=== PATIENT | female | born 1980 | race Two or more races ===

== ENCOUNTER → 2020-04-13 | Outpatient (CLI) | payer MEDICAID ==
[~2020-04-13] MED LIST: HYDR-4135 PO; LABE300T3 PO
== END | disposition home or self-care (01) ==
LOC: LAB 14:20
PROVIDERS: ATTEND Obstetrics & Gynecology
DX: Z01.812 Encounter for preprocedural laboratory examination (principal); Z20.828 Contact with and (suspected) exposure to other viral communicable diseases
CPT/HCPCS: C9803; U0003

== ENCOUNTER 2020-04-15 08:31 | Inpatient (IN) | payer MEDICAID ==
[~2020-04-15] VITALS: Ht 167.6 cm; Wt 127.0 kg
[2020-04-15] MEDS ORDERED: CITRIC ACID/SODIUM CITRATE SOLN 30ML UDC PO NR (09:30)
[2020-04-15] MEDS: LACTATED RINGERS 1,000 ML IV SCH ×2 (09:33→10:10)
[2020-04-15] MEDS ORDERED: GLYCOPYRROLATE 0.2 MG/ML 2ML VIAL ONE (09:44)
[2020-04-15] MEDS ORDERED: OXYTOCIN 10 UNITS/ML 1ML ONE (09:44)
[2020-04-15] MEDS ORDERED: FENTANYL CITRATE/PF 50MCG/ML 2ML VIAL ONE (09:44)
[2020-04-15] MEDS ORDERED: EPHEDRINE SULFATE 50MG/ML VIAL ONE (09:44)
[2020-04-15] MEDS ORDERED: ONDANSETRON HCL 4MG/2ML INJ ONE (09:44)
[2020-04-15] MEDS ORDERED: MORPHINE SULFATE/PF 1MG/ML 10ML AMP ONE (09:44)
[2020-04-15] MEDS ORDERED: CEFAZOLIN SODIUM 1000MG/VIAL ONE ×2 (09:44→10:42)
[2020-04-15] MEDS ORDERED: LABE300T3 PO (09:51)
[2020-04-15] MEDS ORDERED: HYDR-4135 PO (09:52)
[2020-04-15 09:58] LABS: BASOPHILS % 0.6 % (0.0-2.0); EOSINOPHILS % 2.4 % (0.0-5.0); HEMATOCRIT. 34.5 % (36.0-48.0); HEMOGLOBIN. 11.5 g/dL (12.0-16.0); LYMPHOCYTES % 13.6 % (20.0-50.0); MEAN CORPUSCULAR HEMOGLOBIN 25.5 pg (28.0-32.0); MEAN CORPUSCULAR VOLUME 76.7 fL (81.0-99.0); MEAN PLATELET VOLUME 9.1 fl (7.4-10.4); MONOCYTES % 8.2 % (2.0-8.0); NEUTROPHILS % 75.2 % (40.0-76.0); PLATELET 204 x1000/uL (130-400); RED BLOOD CELL COUNT 4.49 mill/uL (4.2-5.4); RED CELL DISTRIBUTION WIDTH 17.7 % (11.6-14.6)
[2020-04-15 10:02] LABS: CLARITY URINE CLEAR (CLEAR); COLOR URINE YELLOW (YELLOW); KETONES URINE NEGATIVE (NEGATIVE); LEUKOCYTE ESTERASE URINE NEGATIVE (NEGATIVE); NITRITE URINE NEGATIVE (NEGATIVE); OCCULT BLOOD URINE TRACE (NEGATIVE); PH URINE 6.5 (4.5-8.0); PROTEIN URINE NEGATIVE (NEGATIVE); SPECIFIC GRAVITY URINE 1.018 (1.005-1.030); UROBILINOGEN URINE 0.2 E.U./dL (0.2-1.0)
[2020-04-15 10:05] LABS: PARTIAL THROMBOPLASTIN TIME 26.8 sec (23.4-31.0); PROTHROMBIN TIME 10.1 sec (9.6-11.0)
[2020-04-15] MEDS ORDERED: IBUPROFEN 400MG TABLET PO PRN (10:15)
[2020-04-15] MEDS ORDERED: ONDANSETRON HCL 4MG/2ML INJ IV PRN (10:15)
[2020-04-15] MEDS ORDERED: LANOLIN OINT 7GM TUBE TOP PRN (10:15)
[2020-04-15 10:23] LABS: *AMPHETAMINES SCREEN URINE NEGATIVE (NEGATIVE); *BARBITURATES SCREEN URINE NEGATIVE (NEGATIVE); *BENZODIAZEPINES SCREEN URINE NEGATIVE (NEGATIVE); *COCAINE SCREEN URINE NEGATIVE (NEGATIVE); METHADONE URINE SCREEN NEGATIVE (NEGATIVE); OPIATES URINE SCREEN NEGATIVE (NEGATIVE)
[2020-04-15 10:24] LABS: CANNABINOID URINE SCREEN NEGATIVE (NEGATIVE); PHENCYCLIDINE URINE SCREEN NEGATIVE (NEGATIVE)
[2020-04-15] MEDS ORDERED: DIPHENHYDRAMINE 50MG/ML VIAL ONE (11:04)
[2020-04-15] MEDS ORDERED: KETOROLAC 60MG/2ML VIAL IM ONE (11:04)
[2020-04-15] MEDS ORDERED: DIPHENHYDRAMINE 50MG/ML VIAL IV PRN (11:45)
[2020-04-15] MEDS ORDERED: NALOXONE HCL 0.4 MG/ML 1ML VIAL IV PRN (11:45)
[2020-04-15] MEDS ORDERED: BUTORPHANOL TARTRATE 2 MG/ML VIAL IV PRN (11:45)
[2020-04-15] MEDS: LABETALOL HCL 300MG TABLET PO SCH ×2 (12:18→21:27)
[2020-04-15 13:01] LABS: HEPATITIS B SURFACE ANTIGEN NEGATIVE
[2020-04-15 13:30] VITALS: BP 129/66
[2020-04-15] MEDS: KETOROLAC 30MG/ML VIAL IV SCH ×3 (13:30→21:28)
[2020-04-15 14:00] VITALS: BP 119/66
[2020-04-15] MEDS: DEXT 5%/LR + PITOCIN 20UNITS/L 1,000 ML IV SCH ×2 (15:38→23:31)
[2020-04-15 19:50] VITALS: BP 142/74
[2020-04-15] MEDS ORDERED: DOCUSATE SODIUM 100MG CAPSULE PO SCH (21:00)
[2020-04-16 00:05] VITALS: BP 118/63
[2020-04-16] MEDS ORDERED: KETOROLAC 30MG/ML VIAL IV SCH (03:30)
[2020-04-16 04:10] VITALS: BP 123/57
[2020-04-16] MEDS: LABETALOL HCL 300MG TABLET PO SCH ×3 (06:17→22:08)
[2020-04-16] MEDS: HYDRALAZINE HCL 25MG TABLET PO SCH (06:17)
[2020-04-16 06:58] LABS: BASOPHILS % 0.3 % (0.0-2.0); EOSINOPHILS % 2.7 % (0.0-5.0); HEMATOCRIT. 29.9 % (36.0-48.0); HEMOGLOBIN. 9.7 g/dL (12.0-16.0); LYMPHOCYTES % 15.9 % (20.0-50.0); MEAN CORPUSCULAR HEMOGLOBIN 25.3 pg (28.0-32.0); MEAN CORPUSCULAR VOLUME 77.7 fL (81.0-99.0); MEAN PLATELET VOLUME 9.1 fl (7.4-10.4); MONOCYTES % 13.2 % (2.0-8.0); NEUTROPHILS % 67.9 % (40.0-76.0); PLATELET 172 x1000/uL (130-400); RED BLOOD CELL COUNT 3.84 mill/uL (4.2-5.4); RED CELL DISTRIBUTION WIDTH 17.9 % (11.6-14.6)
[2020-04-16 08:30] VITALS: BP 124/68
[2020-04-16] MEDS: HYDROCODONE/ACETAMINOPHEN 5/325MG TABLET PO PRN ×3 (14:01→20:47)
[2020-04-16 15:19] VITALS: BP 131/67
[2020-04-16 19:30] VITALS: BP 136/82
[2020-04-16 22:00] VITALS: BP 132/57
[2020-04-17 00:20] VITALS: BP 124/63
[2020-04-17] MEDS: HYDROCODONE/ACETAMINOPHEN 5/325MG TABLET PO PRN ×3 (05:47→15:17)
[2020-04-17] MEDS: LABETALOL HCL 300MG TABLET PO SCH ×2 (05:52→15:19)
[2020-04-17] MEDS: HYDRALAZINE HCL 25MG TABLET PO SCH (05:52)
== END 2020-04-17 16:40 | disposition home or self-care (01) | DRG 540 ==
LOC: 8 EST LDRP 08:31 → 8EST 13:30
PROVIDERS: ADMIT Obstetrics & Gynecology; ATTEND Obstetrics & Gynecology
PROC: 10D00Z1 Extraction of Products of Conception, Low, Open Approach (ICD-10-PCS; principal; 2020-04-15)
PROC: 0UB60ZZ Excision of Left Fallopian Tube, Open Approach (ICD-10-PCS; 2020-04-15)
DX: O34.211 Maternal care for low transverse scar from previous cesarean delivery (principal); O10.92 Unspecified pre-existing hypertension complicating childbirth; Z37.0 Single live birth; Z79.899 Other long term (current) drug therapy; Z88.8 Allergy status to other drugs, medicaments and biological substances; Z30.2 Encounter for sterilization; Z3A.37 37 weeks gestation of pregnancy
CPT/HCPCS: 36415; 80305; 80359; 81003; 85025; 86592; 86703; 86762; 86850; 86900; 87340; 88302; 88307; J0690; J1200; J1885; J2274; J2405; J2590; J3010; J3490; A4315